=== PATIENT | male | born 1975 | race Caucasian/White ===

== ENCOUNTER 2018-11-23 15:34 | Emergency (ER) ==
[2018-11-23] MEDS ORDERED: Ibuprofen 800 MG TAB ONE (16:29)
== END 2018-11-23 16:35 | disposition home or self-care (01) ==
LOC: ERS 15:34
DX: M54.5 Low back pain (principal); G89.29 Other chronic pain; B95.8 Unspecified staphylococcus as the cause of diseases classified elsewhere; F17.210 Nicotine dependence, cigarettes, uncomplicated
CPT/HCPCS: 99283